=== PATIENT | male | born 1970 | race Caucasian/White ===

== ENCOUNTER 2024-06-21 17:29 | Emergency (ER) | payer OTHER ==
[~2024-06-21] VITALS: Ht 172.7 cm; Wt 90.0 kg
[2024-06-21 17:51] VITALS: O2SAT 95
[2024-06-21 19:35] LABS: BASOPHILS % 0.1 % (0.0-2.0); EOSINOPHILS % 0.4 % (0.0-5.0); HEMATOCRIT. 43.9 % (42.0-52.0); MEAN CORPUSCULAR HEMOGLOBIN 31.6 pg (28.0-32.0); MEAN CORPUSCULAR HGB CONC 34.3 g/dL (31.0-37.0); MEAN CORPUSCULAR VOLUME 92.3 fL (80.0-94.0); MEAN PLATELET VOLUME 8.6 fl (7.4-10.4); MONOCYTES % 7.7 % (2.0-8.0); NEUTROPHILS % 72.8 % (40.0-76.0); PLATELET 209 x1000/uL (130-400); RED BLOOD CELL COUNT 4.75 mill/uL (4.7-6.1); WHITE BLOOD COUNT 7.3 x1000/uL (4.5-11.0)
[2024-06-21 19:46] LABS: D-DIMER 0.23 mg/L FEU (<0.50); PROTHROMBIN TIME 11.1 sec (9.6-11.0)
[2024-06-21 19:47] LABS: CHLORIDE 101 mEq/L (98-107); POTASSIUM 3.9 mEq/L (3.5-5.1); SODIUM 139 mEq/L (136-145)
[2024-06-21 19:48] LABS: CARBON DIOXIDE 26 mEq/L (21-32)
[2024-06-21 19:53] LABS: CREATININE 1.1 mg/dL (0.6-1.3); GLUCOSE 123 mg/dL (70-105); UREA NITROGEN BLOOD 14 mg/dL (9-23)
[2024-06-21 19:54] LABS: TROPONIN I HIGH SENSITIVITY 8 ng/L (3.0-53)
[2024-06-21 19:57] LABS: THYROID STIMULATING HORMONE 1.28 uIU/mL (0.55-4.78)
[2024-06-21 20:37] VITALS: BP 141/95; PULSE 66; RESP 18; TEMP 36.7; O2SAT 98
== END 2024-06-21 20:38 | disposition home or self-care (01) ==
LOC: ER 17:42
DX: R20.0 Anesthesia of skin (principal); R00.0 Tachycardia, unspecified; R00.2 Palpitations
CPT/HCPCS: 36415; 71045; 80048; 83880; 84443; 84484; 85025; 85379; 93005; 99285